=== PATIENT | male | born 1985 | race Caucasian/White ===

== ENCOUNTER 2018-02-15 12:26 | Emergency (ER) | payer OTHER ==
[~2018-02-15] VITALS: Ht 172.7 cm; Wt 104.3 kg
[2018-02-15 12:33] VITALS: Ht 172.7 cm; Wt 104.3 kg
[2018-02-15 17:08] VITALS: BP 161/76
== END 2018-02-15 18:06 | disposition home or self-care (01) ==
LOC: ED 12:26
DX: G89.29 Other chronic pain (principal); M54.5 Low back pain
CPT/HCPCS: J1885; J2270

== ENCOUNTER 2018-09-09 09:32 | Emergency (ER) | payer MEDICAID ==
[~2018-09-09] VITALS: Ht 175.3 cm; Wt 114.3 kg
[2018-09-09 09:50] VITALS: Ht 175.3 cm; Wt 114.3 kg
[2018-09-09 11:57] VITALS: BP 149/81
== END 2018-09-09 11:57 | disposition home or self-care (01) ==
LOC: ED 09:32
DX: G89.29 Other chronic pain (principal); M54.5 Low back pain
CPT/HCPCS: J1885; J2270

== ENCOUNTER 2020-10-21 02:59 | Emergency (ER) | payer OTHER ==
[~2020-10-21] VITALS: Ht 172.7 cm; Wt 113.4 kg
[2020-10-21 03:09] VITALS: Ht 172.7 cm; Wt 113.4 kg
[2020-10-21 07:57] VITALS: BP 137/73
== END 2020-10-21 07:57 | disposition home or self-care (01) ==
LOC: ED 02:59
DX: S82.891A Other fracture of right lower leg, initial encounter for closed fracture (principal); G89.29 Other chronic pain; M54.9 Dorsalgia, unspecified; W18.30XA Fall on same level, unspecified, initial encounter; Y93.89 Activity, other specified; Y92.89 Other specified places as the place of occurrence of the external cause; Y99.8 Other external cause status